=== PATIENT | male | born 1970 | race African-American/Black ===

== ENCOUNTER 2017-02-27 16:15 | Emergency (ER) | payer MEDICAID ==
[~2017-02-27] VITALS: Ht 185.4 cm; Wt 83.9 kg
[2017-02-27] MEDS ORDERED: TdaP Vaccine 0.5ml Syr IM ONE (17:15)
[2017-02-27] MEDS ORDERED: Bacitracin Oint UD TOPIC ONE (17:15)
[2017-02-27] MEDS ORDERED: Lidocaine 1% MPF 10mg/ml 5ml INJ ONE (17:15)
[2017-02-27] MEDS ORDERED: IBUPROFEN600 MG ORAL (17:55)
[2017-02-27 18:32] VITALS: BP 110/71
[2017-02-27 18:34] VITALS: BP 110/71
--- NOTE | 2017-02-27 21:58 | Emergency Room Report ---
History of Present Illness General Chief Complaint: Laceration Source: Patient Present Illness HPI The patient is a 46-year-old male presenting for laceration to the left index finger which occurred today. 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 He is now complaining of 2/10 dull ache to the digits and does not radiate. Pain worse with touch. He denies prior injury to this finger. He denies any numbness or tingling. Patient is unsure of last tetanus vaccination. He denies any other symptoms Allergies: Coded Allergies: No Known Allergies (Unverified , 02/27/17) Patient History Past Medical History: see triage record Pertinent Family History: none Reviewed Nursing Documentation: PMH: Agreed, PSxH: Agreed Nursing Documentation-PMH Past Medical History: No Stated History Review of Systems All Other Systems: negative except mentioned in HPI Physical Exam Vital Signs Date Time Temp Pulse Resp B/P Pulse Ox O2 Delivery O2 Flow Rate FiO2 02/27/17 16:44 98.1 78 18 115/71 98 Room Air Sp02 EP Interpretation: reviewed, normal General Appearance: no apparent distress, alert, GCS 15, non-toxic Head: normocephalic, atraumatic Eyes: bilateral eye PERRL, bilateral eye normal inspection Musculoskeletal: normal range of motion, tender - TTP over dorsal L 2nd digit Neurologic: alert, oriented x3, responsive, motor strength/tone normal, sensory intact, speech normal Psychiatric: judgement/insight normal, memory normal, mood/affect normal, no suicidal/homicidal ideation Skin: normal turgor, laceration - 4cm linear laceration to L dorsal index finger Lymphatic: no adenopathy Procedures Splinting Splinting : Consent: Verbal Location: L index finger Pre-Made Type: metal Splint: finger Pre-Proc Neuro Vasc Exam: normal Post-Proc Neuro Vasc Exam: normal Patient Tolerated: Well Complications: None Laceration/Wound Repair Laceration/Wound Repair : Consent: Verbal Wound Location: upper extremity Wound's Depth, Shape: superficial, linear Wound Length (cm): 4 Wound Explored: clean Irrigated w/ Saline (ccs): 100 Betadine Prep?: Yes Anesthesia: 1% Lidocaine Volume Anesthetic (ccs): 5 Wound Repaired With: sutures Suture Size/Type: 4:0, proline Number of Sutures: 6 Layer Closure?: No Sterile Dressing Applied?: Yes Splint Applied?: Yes Type of Splint Applied: metal Sling Applied?: No Patient Tolerated: Well Complications: None Medical Decision Making PA Attestation Dr. bey is my supervising physician. Patient management was discussed with my supervising physician Diagnostic Impression: Primary Impression: Laceration ER Course The patient is a 46-year-old male presenting for laceration to the left index finger which occurred today Ddx considered include but not limited to fracture, tendon/ligament injury, avulsion, nerve damage Physical exam: Left index finger has 4 cm linear laceration to the dorsal aspect. Full active range of motion. No active bleeding. No obvious deformity. Sensation is intact The wound was irrigated with normal saline and cleaned with betadine. A 27g needle was used to administer 5mL of lidocaine w.o epi for digital block. 6 sutures were placed with 4-0 prolene. The wound was well approximated and the patient tolerated the procedure well. The wound was then cleaned and bacitracin was applied. A metal finger splint was applied The patient will continue to keep the wound clean and dry and will followup with PMD. Suture instructions provided. ER precautions are given Last Vital Signs Date Time Temp Pulse Resp B/P Pulse Ox O2 Delivery O2 Flow Rate FiO2 02/27/17 18:34 98.1 86 18 110/71 98 Room Air Status: improved Disposition: HOME, SELF-CARE Condition: Improved Scripts Ibuprofen* (MOTRIN*) 600 Mg Tablet 600 MG ORAL Q8H Y for For Pain, #30 TAB 0 Refills Prov: KENNY SHEN 02/27/17 Patient Instructions: Laceration Care, Adult Additional Instructions: I discussed my findings with the patient. All questions and concerns have been answered. Treatment and medication compliance have been addressed. I advised the patient that they need to follow up with PMD in 7 days for wound check and suture removal. If you are unable to see PMD, return to the ED in 7 days. Return to ED if pain remains or worsens, you notice discharge from the wound, the wound continues to bleed, the suture/s fall out, you notice a fever or chills, or for any reason. Patient is advised to keep the wound clean and apply an antibacterial ointment. Patient verbalized understanding of discharge instructions. KENNY SHEN Feb 27, 2017 21:58
== END 2017-02-27 18:38 | disposition home or self-care (01) ==
LOC: EMR 16:45
DX: S61.211A Laceration without foreign body of left index finger without damage to nail, initial encounter (principal); Z23 Encounter for immunization; W29.8XXA Contact with other powered hand tools and household machinery, initial encounter; Y92.9 Unspecified place or not applicable; Y99.8 Other external cause status
CPT/HCPCS: 12002; 29280; 90471; 90715; 96372; 99284; Z7502

== ENCOUNTER 2017-03-08 03:05 | Emergency (ER) | payer MEDICAID ==
[~2017-03-08] VITALS: Ht 185.4 cm; Wt 83.9 kg
[~2017-03-08 03:05] MED LIST: IBUPROFEN600 MG ORAL
[2017-03-08 03:15] VITALS: BP 128/79
--- NOTE | 2017-03-08 03:42 | Emergency Room Report ---
History of Present Illness General Chief Complaint: Wound Recheck/Suture Removal Source: Patient Present Illness HPI Is a 46-year-old male who is left-hand dominant. He presents with chief complaint of wound check and suture removal. Last week he was here he sustained a laceration to his left index finger. 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 Is feeling fine. Did not take antibiotics. No drainage. No fever or chills. Allergies: Coded Allergies: No Known Allergies (Unverified , 02/27/17) Patient History Past Medical History: see triage record, old chart reviewed Past Surgical History: other Pertinent Family History: none Social History: Reports: smoking Immunizations: other Reviewed Nursing Documentation: PMH: Agreed, PSxH: Agreed Review of Systems Eye: Denies: blurred vision, eye pain ENT: Denies: ear pain, nose congestion, throat swelling Respiratory: Denies: cough, shortness of breath Cardiovascular: Denies: chest pain, palpitations Gastrointestinal: Denies: abdominal pain, diarrhea, nausea, vomiting Musculoskeletal: Denies: back pain, joint pain Skin: Denies: rash Neurological: Denies: headache, numbness Endocrine: Denies: increased thirst, increased urine Hematologic/Lymphatic: Denies: easy bruising All Other Systems: negative except mentioned in HPI Physical Exam Vital Signs Date Time Temp Pulse Resp B/P Pulse Ox O2 Delivery O2 Flow Rate FiO2 03/08/17 03:09 97.9 76 15 128/79 100 Room Air vitals normal Sp02 EP Interpretation: reviewed, normal General Appearance: well appearing, no apparent distress, alert Head: normocephalic, atraumatic Eyes: bilateral eye EOMI, bilateral eye PERRL ENT: hearing grossly normal, normal pharynx Neck: full range of motion, supple, no meningismus Respiratory: chest non-tender, lungs clear, normal breath sounds Cardiovascular #1: regular rate, rhythm, no murmur Gastrointestinal: normal bowel sounds, non tender, no mass, no organomegaly, no bruit, non-distended Musculoskeletal: back normal, gait/station normal, normal range of motion, other - Left index finger:Wound well approximated and healing well. Sutures intact. No infection. Psychiatric: mood/affect normal Skin: warm/dry Procedures Additional Procedure Procedure Narrative Procedure: Suture removal Indication: Sutures scheduled for removal Description: Using a small scissors, I remove the sutures without any difficulty. No evidence of infection. Patient tolerated procedure without any difficulty. Medical Decision Making Diagnostic Impression: Primary Impression: Encounter for wound re-check Additional Impression: Encounter for removal of sutures ER Course Visit here for suture removal. No evidence of infection. Healing well. We'll discharge home. Last Vital Signs Date Time Temp Pulse Resp B/P Pulse Ox O2 Delivery O2 Flow Rate FiO2 03/08/17 03:15 97.9 87 15 128/79 100 Room Air Status: improved Disposition: HOME, SELF-CARE Condition: Stable Referrals: [facility],REFERRING (PCP) Additional Instructions: Followup with your Dr. in 7 days. Return if symptom worsen. CHLOÉ MONAHAN M.D. Mar 08, 2017 03:42
[2017-03-08 03:45] VITALS: BP 128/79
== END 2017-03-08 03:45 | disposition home or self-care (01) ==
LOC: EMR 03:25
DX: S61.211D Laceration without foreign body of left index finger without damage to nail, subsequent encounter (principal); W27.8XXD Contact with other nonpowered hand tool, subsequent encounter; Z48.02 Encounter for removal of sutures; F17.200 Nicotine dependence, unspecified, uncomplicated
CPT/HCPCS: 99281

== ENCOUNTER 2018-02-15 01:05 | Emergency (ER) | payer MEDICAID ==
[~2018-02-15] VITALS: Ht 185.4 cm; Wt 86.2 kg
[2018-02-15] MEDS ORDERED: NKM (01:30)
[2018-02-15 01:39] VITALS: BP 111/67
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
[2018-02-15 02:23] VITALS: BP 111/67
--- NOTE | 2018-02-15 09:30 | Diagnostic Imaging Report ---
Indication: Pain Technique: XRAY Knee Compl 4v+ R Comparison: None Findings: There is no evidence of acute fracture or dislocation. 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 There is mild narrowing of the medial femorotibial compartment. There is a small suprapatellar effusion. No radiopaque foreign body seen. IMPRESSION: No evidence of acute fracture or dislocation. Bipartite patella. Small knee joint effusion.
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
--- NOTE | 2018-02-15 09:34 | Diagnostic Imaging Report ---
Indication: Pain status post injury Technique: XRAY Ankle Compl Min 3v R Comparison: None Findings: There is soft tissue swelling about the lateral malleolus. There is no evidence of acute fracture. There is chronic, benign appearing cortical reaction of the distal tibia. Ankle mortise is intact on these nonstress views. Anatomic alignment of the hindfoot is grossly preserved. There is a small plantar calcaneal enthesophyte. IMPRESSION: Soft tissue swelling about the lateral malleolus suggesting ankle sprain. No evidence of associated fracture or dislocation.
== END 2018-02-15 02:25 | disposition home or self-care (01) ==
LOC: EMR 01:20
DX: M25.571 Pain in right ankle and joints of right foot (principal); M25.561 Pain in right knee; S90.01XA Contusion of right ankle, initial encounter; V23.4XXA Motorcycle driver injured in collision with car, pick-up truck or van in traffic accident, initial encounter; Y92.411 Interstate highway as the place of occurrence of the external cause; M25.461 Effusion, right knee
CPT/HCPCS: 99284